=== PATIENT | female | born 1940 | race Caucasian/White ===

== ENCOUNTER 2016-12-05 09:34 | Inpatient (IN) | payer OTHER, BC ==
[~2016-12-05] VITALS: Ht 167.6 cm; Wt 90.7 kg
[~2016-12-05 09:34] MED LIST: ASPIR 8181 M1 PO; BABY ASPIRIN81 M1 PO; BENTYL10 MG PO; CRANBERRY500 MG PO; FLAGYL500 MG PO; LOPRESSOR HC1 TABLE2 PO; METOPROLOL-HCT1 EACH PO; NORCO 5/3251 TABLET PO; PROBIOTIC1 EAC2 PO; PROTONIX40 MG PO; SIMVASTATIN40 MG PO; STOOL SOFTENER100 MG PO; VITAMIN D2000 UNIT PO; ZOLOFT50 MG PO
[2016-12-05 11:34] VITALS: BP 140/77
[2016-12-05 20:57] VITALS: BP 166/75
[2016-12-05 23:56] VITALS: BP 145/66
[2016-12-06 01:57] VITALS: BP 165/70
[2016-12-06 04:15] VITALS: BP 151/67
[2016-12-06 05:25] LABS: HEMATOCRIT 35.7 % (36.0-46.0); MCV 90.2 FL (83-99)
[2016-12-06 08:04] VITALS: BP 128/59
[2016-12-06 11:31] VITALS: BP 139/63
[2016-12-06 15:42] VITALS: BP 120/58
[2016-12-06 19:55] VITALS: BP 152/67
[2016-12-07] VITALS (7 sets, daily range): BP systolic 123–175; BP diastolic 59–77
[2016-12-07 07:17] LABS: HEMATOCRIT 34.4 % (36.0-46.0); MCV 89.8 FL (83-99)
[2016-12-08 04:00] VITALS: BP 155/69
[2016-12-08 07:47] VITALS: BP 160/68
[2016-12-08] MEDS ORDERED: BENADRYL25 MG PO (08:39)
[2016-12-08] MEDS ORDERED: SENNA PLUS TAB1 EACH PO (08:40)
[2016-12-08] MEDS ORDERED: XARELTO10 MG PO (08:40)
[2016-12-08] MEDS ORDERED: OXYCODONE HCL5 MG PO (08:40)
[2016-12-08] MEDS ORDERED: TYLENOL REGULA325 MG PO (08:40)
[2016-12-08 11:33] VITALS: BP 118/55
== END 2016-12-08 13:12 | DRG 470 ==
LOC: 2SOUTH 09:34 → 3WEST 11:00 → 2SOUTH 11:00 → 3WEST 20:54
PROVIDERS: Orthopaedic Surgery
PROC: 0SRD0J9 Replacement of Left Knee Joint with Synthetic Substitute, Cemented, Open Approach (ICD-10-PCS; principal; 2016-12-05)
DX: M17.12 Unilateral primary osteoarthritis, left knee (principal); F33.9 Major depressive disorder, recurrent, unspecified; Z88.2 Allergy status to sulfonamides; I10 Essential (primary) hypertension; Z86.718 Personal history of other venous thrombosis and embolism; Z79.82 Long term (current) use of aspirin; Z87.11 Personal history of peptic ulcer disease
CPT/HCPCS: 71010; 85014; 85018; C1713; J0131; J0330; J0690; J1885; J2250; J2405; J2795; J3010; J7050; L1820

== ENCOUNTER 2017-02-27 09:01 | Inpatient (IN) | payer OTHER, BC ==
[~2017-02-27] VITALS: Ht 167.6 cm; Wt 88.8 kg
[~2017-02-27 09:01] MED LIST changes: +BENADRYL25 MG PO; +IRON325 M1 PO; +OXYCODONE HCL5 MG PO; +SENNA PLUS TAB1 EACH PO; +TYLENOL REGULA325 MG PO; +XARELTO10 MG PO
[2017-02-27 11:58] VITALS: BP 174/65
[2017-02-27 18:46] VITALS: BP 176/73
[2017-02-27 22:14] VITALS: BP 129/69
[2017-02-28 00:24] VITALS: BP 124/60
[2017-02-28 04:14] VITALS: BP 141/64
[2017-02-28 06:21] LABS: HEMATOCRIT 36.4 % (36.0-46.0); MCV 90.5 FL (83-99)
[2017-02-28 06:47] LABS: ANION GAP 8 MEQ/L (2-14); CHLORIDE 102 MEQ/L (99-109); GFR ESTIMATE (CALCULATED) > 59 mL/min/; GLUCOSE 142 mg/dL (70-99); POTASSIUM 3.5 MEQ/L (3.7-5.4); SAMPLE HEMOLYSIS CHECK 0; SAMPLE ICTERIC CHECK 0; SAMPLE LIPEMIA CHECK 0; SODIUM 140 MEQ/L (136-147); UREA NITROGEN (BUN) 11 mg/dL (9-23)
[2017-02-28 08:11] VITALS: BP 128/59
[2017-02-28 12:28] VITALS: BP 127/60
[2017-02-28 16:44] VITALS: BP 156/68
[2017-02-28 20:00] VITALS: BP 156/69
[2017-03-01 04:15] VITALS: BP 152/67
[2017-03-01 06:23] LABS: HEMATOCRIT 37.2 % (36.0-46.0); MCV 90.7 FL (83-99)
[2017-03-01 06:43] LABS: ANION GAP 9 MEQ/L (2-14); CHLORIDE 101 MEQ/L (99-109); GFR ESTIMATE (CALCULATED) > 59 mL/min/; GLUCOSE 127 mg/dL (70-99); POTASSIUM 3.9 MEQ/L (3.7-5.4); SAMPLE HEMOLYSIS CHECK 0; SAMPLE ICTERIC CHECK 0; SAMPLE LIPEMIA CHECK 0; SODIUM 137 MEQ/L (136-147); UREA NITROGEN (BUN) 10 mg/dL (9-23)
[2017-03-01 07:52] VITALS: BP 132/66
[2017-03-01 11:35] VITALS: BP 126/60
[2017-03-01 17:19] VITALS: BP 137/65
[2017-03-02 00:05] VITALS: BP 119/57
[2017-03-02 07:50] VITALS: BP 119/85
[2017-03-02] MEDS ORDERED: BENADRYL25 MG PO (09:21)
[2017-03-02] MEDS ORDERED: XARELTO10 MG PO (09:22)
[2017-03-02] MEDS ORDERED: BISACODYL5 MG PO (09:23)
[2017-03-02] MEDS ORDERED: OXYCODONE HCL5 MG PO (09:23)
== END 2017-03-02 14:58 | DRG 470 ==
LOC: 2SOUTH 09:01 → 3EAST 10:43 → 2SOUTH 10:43 → 3EAST 18:42
PROVIDERS: Orthopaedic Surgery; Physician Assistant
PROC: 0SRC0J9 Replacement of Right Knee Joint with Synthetic Substitute, Cemented, Open Approach (ICD-10-PCS; principal; 2017-02-27)
DX: M17.11 Unilateral primary osteoarthritis, right knee (principal); Z96.652 Presence of left artificial knee joint; I10 Essential (primary) hypertension; Z86.718 Personal history of other venous thrombosis and embolism; Z79.01 Long term (current) use of anticoagulants; F41.9 Anxiety disorder, unspecified; K21.9 Gastro-esophageal reflux disease without esophagitis; M81.0 Age-related osteoporosis without current pathological fracture; E55.9 Vitamin D deficiency, unspecified; E87.6 Hypokalemia; E78.5 Hyperlipidemia, unspecified
CPT/HCPCS: 71010; 80048; 85014; 85018; 94799; C1713; J0131; J0690; J1885; J2250; J2795; J3010; J7030; J7050; L1820